=== PATIENT | female | born 1975 | race Caucasian/White ===

== ENCOUNTER 2016-12-08 09:17 | Outpatient (CLI) | payer MEDICARE, OTHER ==
[2016-09-01 09:56] VITALS: Wt 52.2 kg
[~2016-12-08 09:17] MED LIST: BAYER CHEWABLE81 MG PO; CORDARONE200 MG PO; COUMADIN2.5 MG PO; COUMADIN5 MG PO; CYCLOBENZAPRINE10 MG PO; FLEXERIL10 MG PO; FLORINEF 0.1 M0.1 MG PO; HEMOCYTE PLUS C1 CAP PO; HYDROCODONE-APA1 TAB PO; K-DUR20 MEQ PO; LANOXIN125 MCG PO; LASIX20 MG PO; LOPRESSOR25 MG PO; NADOLOL20 MG PO; NORCO 10/325 TA1 TA1 PO; XARELTO15 MG PO; ZANAFLEX4 MG PO
--- NOTE | 2016-12-08 11:00 | NUR ---
IV VANCOMYCIN INFUSING, PATIENT C/O ITCHING ON ABDOMEN AND PUFFY EYES, RATE DECREASED. PATIENT STATES SHE WILL ADVISE DR BYRNE THAT THIS TIME HER REACTION IS STRONGER TO VANCOMYCIN
--- NOTE | 2016-12-08 11:40 | NUR ---
VANCOMYCIN INFUSION ALMOST COMPLETE, PATIENT'S ALLERGY SYMPTOMS PERSIST BUT ARE STABLE. O2 SAT 99% ON ROOM AIR, SITTING UP IN CHAIR IN ROOM
--- NOTE | 2016-12-08 12:20 | NUR ---
GENTAMICIN INFUSION COMPLETE, PATIENT STATES ALLERGY SYMTPOMS ARE MUCH BETTER, ARE ALMOST GONE. SITTING IN CHAIR IN ROOM, IV DC'D WITH TIP INTACT
== END 2016-12-08 12:35 | disposition home or self-care (01) ==
LOC: D.OPS 09:17
DX: Z95.2 Presence of prosthetic heart valve (principal)

== ENCOUNTER 2017-02-17 09:16 | Outpatient (CLI) | payer MEDICARE, OTHER ==
[~2017-02-17] VITALS: Ht 165.1 cm; Wt 51.8 kg
[2017-02-17 11:21] VITALS: Ht 165.1 cm; Wt 51.8 kg
--- NOTE | 2017-02-17 11:31 | NUR ---
1109-22 GAUGE IV STARTED IN RIGHT AC. X 1 STICK. SECURED WITH TEGADERM. 1110-GENTAMICIN STARTED VIA MED PUMP. INFUSING WITHOUT ANY DIFFICULTIES. 1131-VANCOMYCIN INFUSION STARTED VIA MED PUMP. WILL CONTINUE TO MONITOR. PT DENIES ANY NEEDS OR CONCERNS AT THIS TIME
--- NOTE | 2017-02-17 13:58 | NUR ---
1300-PT CONTINUES TO DO WELL. 1340-INFUSION COMPLETED WITHOUT ANY DIFFICULTIES. PT DISCHARGTED HOME IN STABLE CONDITION
== END 2017-02-17 13:40 | disposition home or self-care (01) ==
LOC: D.OPS 09:16
DX: Z95.2 Presence of prosthetic heart valve (principal)

== ENCOUNTER → 2017-06-08 09:13 | Outpatient (CLI) | payer MEDICARE, OTHER ==
[~2017-06-08] VITALS: Ht 165.1 cm; Wt 49.5 kg
[2017-06-08 10:16] VITALS: Ht 165.1 cm; Wt 49.5 kg
--- NOTE | 2017-06-08 10:23 | NUR ---
1000-IV SITED WITH 22G TO RIGHT FOREARM X 1 STICK. GENTAMYCIN INFUSING PER PUMP
--- NOTE | 2017-06-08 13:24 | NUR ---
1300-IV D/C 1315-D/C HOME AMBULATORY
== END | disposition home or self-care (01) ==
LOC: D.OPS 09:13
DX: I33.0 Acute and subacute infective endocarditis (principal)

== ENCOUNTER 2017-09-02 09:25 | Outpatient (CLI) | payer MEDICARE, OTHER ==
[2017-09-02] MEDS ORDERED: FLORINEF 0.1 M0.1 MG PO (10:47)
[2017-09-02 10:56] VITALS: BP 98/70
--- NOTE | 2017-09-02 10:59 | NUR ---
1045-PT. STATES SHE PRE-MEDICATED WITH STEROIDS AND BENADRYL PRIOR TO ARRIVAL. IV TO LEFT FOREARM STARTED TIMES ONE ATTEMPT WITH 22G CATHETER, IV ANTIBIOTICS INITIATED VIA PUMP @ THIS TIME.
== END 2017-09-02 12:58 ==
LOC: D.OPS 09:25
DX: Z95.2 Presence of prosthetic heart valve (principal)

== ENCOUNTER → 2017-10-04 06:07 | Outpatient (CLI) | payer MEDICARE, OTHER ==
[~2017-10-04] VITALS: Ht 165.1 cm; Wt 50.0 kg
--- NOTE | 2017-10-04 07:03 | NUR ---
STARTED IV IN LEFT AC WITH 20 GAUGE. 1 ATTEMPT.
[2017-10-04 07:13] VITALS: BP 116/77; Ht 165.1 cm; Wt 50.0 kg
== END | disposition home or self-care (01) ==
LOC: D.OPS 06:07
DX: Z95.2 Presence of prosthetic heart valve (principal)

== ENCOUNTER 2018-01-18 11:20 | Outpatient (CLI) | payer OTHER, MEDICARE ==
[~2018-01-18] VITALS: Ht 152.4 cm; Wt 50.9 kg
[2018-01-18 12:03] VITALS: BP 112/60; Ht 152.4 cm; Wt 50.9 kg
== END 2018-01-18 14:35 | disposition home or self-care (01) ==
LOC: D.OPS 11:20
DX: Z95.2 Presence of prosthetic heart valve (principal)

== ENCOUNTER 2018-05-02 09:06 | Outpatient (CLI) | payer MEDICARE, OTHER ==
[~2018-05-02] VITALS: Ht 162.6 cm; Wt 50.9 kg
[2018-05-02 10:19] VITALS: BP 116/70; Ht 162.6 cm; Wt 50.9 kg
== END 2018-05-02 12:00 | disposition home or self-care (01) ==
LOC: D.OPS 09:06
DX: Z95.2 Presence of prosthetic heart valve (principal)

== ENCOUNTER 2018-05-05 09:10 | Outpatient (CLI) | payer MEDICARE, OTHER ==
[~2018-05-05] VITALS: Ht 154.9 cm; Wt 49.1 kg
[2018-05-05 10:41] VITALS: BP 109/78; Ht 154.9 cm; Wt 49.1 kg
== END 2018-05-05 13:00 | disposition home or self-care (01) ==
LOC: D.OPS 09:10
DX: Z95.2 Presence of prosthetic heart valve (principal)

== ENCOUNTER 2018-07-05 09:17 | Outpatient (CLI) | payer MEDICARE, OTHER ==
[~2018-07-05] VITALS: Ht 165.1 cm; Wt 50.9 kg
[2018-07-05 09:50] VITALS: BP 118/55; Ht 165.1 cm; Wt 50.9 kg
== END 2018-07-05 12:20 | disposition home or self-care (01) ==
LOC: D.OPS 09:17
DX: Z95.2 Presence of prosthetic heart valve (principal); Z01.812 Encounter for preprocedural laboratory examination

== ENCOUNTER 2020-12-27 11:08 | Day surgery (SDC) | payer MEDICARE, OTHER ==
[2020-12-23 15:53] LABS: BASOPHILS 0.3 % (0-2); EOSINOPHILS 1.7 % (0-7); HEMOGLOBIN 13.1 g/dL (12-16); LYMPHOCYTE ABS# 1.37 10x3/uL (1.18-3.74); LYMPHOCYTES 46.4 % (15-50); MCHC 32.8 g/dL (31.0-37.0); MCV 97.8 fL (80.0-100.0); MEAN PLATELET VOLUME 9.1 fL (7.4-10.4); MONOCYTES 7.8 % (2-11); NEUTROPHIL ABS# 1.29 10x3/uL (1.56-6.13); NEUTROPHILS 43.8 % (40-80); PLATELET COUNT 165 10x3/uL (130-400); RBC 4.09 10x6/uL (4.00-5.40); RDW 13.3 % (11.5-14.5)
[2020-12-23 16:04] LABS: ANION GAP 12.7 mmol/L (8-16); CALCIUM 8.2 mg/dL (8.5-10.1); CARBON DIOXIDE 30.5 mmol/L (21.0-32.0); POTASSIUM - SERUM 4.2 mmol/L (3.5-5.1)
[2020-12-23 16:15] LABS: APTT 37.6 SECONDS (22.8-39.4); INR 2.19 (0.85-1.17); PROTIME 22.6 SECONDS (11.6-15.0)
[~2020-12-27] VITALS: Ht 165.1 cm; Wt 52.2 kg
[~2020-12-27 11:08] MED LIST changes: +CETIRIZINE HCL5 MG PO; -COUMADIN2.5 MG PO; +TOPROL XL25 MG PO; +WARFARIN SODIU7.5 MG PO
[2020-12-27 12:23] VITALS: BP 105/68; Ht 165.1 cm; Wt 52.2 kg
[2020-12-27 12:40] LABS: HCG URINE NEGATIVE (NEGATIVE)
--- NOTE | 2020-12-27 15:02 | NUR ---
PT DENIES NAUSEA. ASKED IF SHE MAY NEED NAUSEA MEDICATION AT HOME AND SHE SAID YES. CALLED IN RX FOR PROMETHAZINE 25 MG #10 1 PO Q6 HOURS PRN TO [address] AT [facility] ON [address]
--- NOTE | 2020-12-27 15:10 | NUR ---
DISCHARGE INSTRUCTIONS REVIEWED WITH PATIENT AND RX'S FOR PERCOCET AND VISTARIL GIVEN TO PT. COPY OF DC INSTRUCTIONS PROVIDED TO PT. SHE VOICED UNDERSTANDING OF ALL. IV DC'D WITH CATH TIP INTACT. ASSISTED PT TO GET DRESSED. AWAITING TRANSPORTATION HOME.
--- NOTE | 2020-12-27 15:58 | NUR ---
DISCHARGED VIA W/C, ACCOMPANIED BY THIS NURSE, TO POV WITH FAMILY DRIVING. ALL BELONGINGS AND DC PACKET WITH PT.
--- NOTE | 2020-12-31 07:01 | OP ---
PATIENT NAME: JAN MARIE MEDICAL RECORD: [id number] :77 LOCATION:[facility] ADMISSION DATE: SURGEON: CARLO THAKKAR DO DATE OF OPERATION: 12/27/2020 PROCEDURE PERFORMED: Left knee arthroscopy with partial medial meniscectomy. PREOPERATIVE DIAGNOSIS: Left knee medial meniscal tear. POSTOPERATIVE DIAGNOSES: Left knee medial meniscal tear. INDICATIONS: Ms. Marie is a 45-year-old female who I saw in my clinic, who has had left knee popping, catching and locking and joint line tenderness for quite some time, has been going on a long time for her and she is tired of dealing with it and wants something done surgically. She could not get an MRI due to her heart valve, so I told her that she had all the signs and symptoms of meniscal tear. We scoped it and trimmed it out or fix it if we could. She is aware of the risks including increased risk if we had to do a partial meniscectomy for arthritis, infection, bleeding, damage to nerves and vessels, need for further surgery, retear of the meniscus, continued pain, loss of motion of the knee. She is aware of all that and signed the consent. SURGEON: Carlo Thakkar DO DESCRIPTION OF PROCEDURE: The patient was taken to the operative suite, laid in the supine position, given general anesthetic and LMA was placed. The left lower extremity was then prepped and draped in sterile fashion. Time out was performed. Everyone was in agreement with the correct side, site, patient, and procedure. She had received a gram of Ancef preoperatively. I then made a lateral portal with an 11-blade scalpel. Trocar was entered into the joint. then inspected suprapatellar pouch, no loose body was seen in it as well as the medial and lateral gutters. I then flexed the knee down and established a medial portal with an 18-gauge spinal needle 11-blade scalpel and trocar entered. I saw then the meniscal tear. It had essentially a bucket-handle tear that had almost broken off completely. I trimmed it out as best I could with a bitter and a shaver back to a stable point and I did not see any further tearing in the meniscus at that point. I then inspected the ACL was in good repair. I then [id number]'ed the knee in the lateral compartment, also did not have any tears seen in the menisci or the cartilage. Cartilage was in good shape also in the medial side. I then inspected the patellofemoral joint and there was no chondromalacia seen in it. I then turned the water off and suction on. All excess fluid removed from the knee. Kendal Peralta, certified welder then closed the portal sites with 4-0 Monocryl in inverted fashion and placed Steri-Strips, Adaptic, 4 x 4, ABD, cast padding, and 6-inch Gennaro. She was awakened and taken to recovery in stable condition. BLOOD LOSS: Minimal. COMPLICATIONS: None. TRANSINT:[id number] Voice Confirmation ID: [id number] DOCUMENT ID: [id number] OPERATIVE REPORT [id number] JAN MARIE,CARLO Lawrence DO at 0701 CC: [id number] DICTATION DATE: 12/27/20 1349 [place] CUTTER: 12/27/20 1928 [facility] 12/27/20 [address] [place] [address]
== END 2020-12-27 15:58 | disposition home or self-care (01) ==
LOC: D.OPS 11:08
PROVIDERS: Anesthesiology; ATTEND Orthopaedic Surgery
DX: M25.562 Pain in left knee (principal); S83.242D Other tear of medial meniscus, current injury, left knee, subsequent encounter; X58.XXXD Exposure to other specified factors, subsequent encounter

== ENCOUNTER → 2021-01-09 10:19 | Outpatient (CLI) | payer MEDICARE, OTHER ==
[2020-12-27 12:23] VITALS: BMI 19.1
== END | disposition home or self-care (01) ==
LOC: D.HCCECHO 10:00
PROVIDERS: ATTEND Internal Medicine Cardiovascular Disease
DX: I42.9 Cardiomyopathy, unspecified (principal)

== ENCOUNTER 2021-01-22 05:24 | Day surgery (SDC) | payer MEDICARE, OTHER ==
[~2021-01-22] VITALS: Ht 165.1 cm; Wt 52.2 kg
[~2021-01-22 05:24] MED LIST changes: +HYDROCODON-ACE1 EA10 PO; +PHENERGAN25 M1 PO; +SINGULAIR10 MG PO
[2021-01-22 05:40] LABS: BASOPHILS 0.2 % (0-2); EOSINOPHILS 1.3 % (0-7); HEMATOCRIT 39.3 % (36.0-48.0); HEMOGLOBIN 12.9 g/dL (12-16); IMMATURE GRANULOCYTES 0.2 % (0-5); LYMPHOCYTE ABS# 1.89 10x3/uL (1.18-3.74); LYMPHOCYTES 35.4 % (15-50); MCH 31.9 pg (26.0-34.0); MCHC 32.8 g/dL (31.0-37.0); MEAN PLATELET VOLUME 8.6 fL (7.4-10.4); MONOCYTES 10.7 % (2-11); NEUTROPHIL ABS# 2.79 10x3/uL (1.56-6.13); NEUTROPHILS 52.2 % (40-80); PLATELET COUNT 167 10x3/uL (130-400); RBC 4.05 10x6/uL (4.00-5.40); RDW 13.7 % (11.5-14.5); WBC 5.3 10x3/uL (4.8-10.8)
[2021-01-22 06:03] LABS: ANION GAP 10.9 mmol/L (8-16); CALCIUM 9.2 mg/dL (8.5-10.1); CARBON DIOXIDE 28.2 mmol/L (21.0-32.0); POTASSIUM - SERUM 4.1 mmol/L (3.5-5.1)
[2021-01-22 06:25] LABS: HCG SERUM NEGATIVE (NEGATIVE)
[2021-01-22 06:45] VITALS: BP 97/56; Ht 165.1 cm; Wt 52.2 kg
[2021-01-22 07:01] LABS: HCG URINE NEGATIVE (NEGATIVE)
[2021-01-22] MEDS ORDERED: HYDROCODON-ACE1 EA10 PO (08:06)
[2021-01-22 10:45] LABS: INR 2.12 (0.85-1.17)
--- NOTE | 2021-01-22 11:35 | NUR ---
1045 IV REMOVED AND INSTRUCTIONS GIVEN.
--- NOTE | 2021-01-22 16:04 | OP ---
PATIENT NAME: JAN MARIE MEDICAL RECORD: [id number] :77 LOCATION:[facility] ADMISSION DATE: SURGEON: CARLO THAKKAR DO DATE OF OPERATION: 01/22/2021 PROCEDURE PERFORMED: Left fourth toe proximal phalanx closed reduction and percutaneous pinning. PREOPERATIVE DIAGNOSIS: Displaced left proximal phalanx fracture of the fourth toe. POSTOPERATIVE DIAGNOSIS: Displaced left proximal phalanx fracture of the fourth toe. INDICATIONS: Ms. Marie is a 45-year-old female who fractured her left fourth toe last week, came to clinic. X-rays were taken and she has a comminuted fourth proximal phalanx fracture of her left foot. It was severely displaced and I told her we probably should put a pin in it. She was aware of the risks of this including infection, bleeding, damage to nerves or vessels, need for further surgery, malunion, nonunion, continued pain, pin site infection, blood loss and bleeding, and even and she signed a consent. SURGEON: Carlo Thakkar DO OPERATIVE PROCEDURE: The patient was taken to the operative suite, laid in supine position, given general anesthetic and LMA was placed. She was given a gram of Ancef preoperatively. The left lower extremity was prepped and draped in sterile fashion. A timeout was performed and everyone was in agreeance with the correct side, site, patient and procedure. I then began by reducing the fracture. I then put a pin in through the distal phalanx and into the fracture site, reducing it and put into the shaft of the proximal phalanx. Once this was in adequate position and alignment on AP and lateral, I then bent the pin and cut it, then wrapped with Adaptic, 4 x 4s using chauncey tape to the third toe with 4 x 4s and then covered in 4 x 4s and cast padding, wrapped with an Gennaro wrap. She was awakened and taken to recovery in stable condition. ESTIMATED BLOOD LOSS: Minimal. COMPLICATIONS: None. TRANSINT:[id number] Voice Confirmation ID: [id number] DOCUMENT ID: [id number] CARLO THAKKAR, at 1604 CC: [id number] DICTATION DATE: 01/22/21 0810 PLATE CUTTER: 01/22/21 1327 [facility] 01/22/[address] [facility] [address] [place] [address]
== END 2021-01-22 11:30 | disposition home or self-care (01) ==
LOC: D.OPS 05:24
PROVIDERS: Anesthesiology; ATTEND Orthopaedic Surgery
DX: S92.512A Displaced fracture of proximal phalanx of left lesser toe(s), initial encounter for closed fracture (principal); X58.XXXA Exposure to other specified factors, initial encounter; Z79.01 Long term (current) use of anticoagulants